=== PATIENT | male | born 1960 | race African-American/Black ===

== ENCOUNTER 2018-07-18 07:40 | Outpatient (CLI) | payer OTHER ==
[2018-07-18] MEDS ORDERED: PROVENTIL IH ONE (09:03)
== END 2018-07-18 07:41 | disposition home or self-care (01) ==
LOC: PF 07:40
PROVIDERS: ATTEND Internal Medicine
DX: J43.9 Emphysema, unspecified (principal); J45.909 Unspecified asthma, uncomplicated
CPT/HCPCS: 94060; 94640; 94729